=== PATIENT | male | born 1970 | race Caucasian/White ===

== ENCOUNTER 2017-06-13 13:36 | Emergency (ER) | payer OTHER ==
[~2017-06-13] VITALS: Ht 182.9 cm; Wt 68.1 kg
[2017-06-13 13:48] VITALS: BP 163/103
[2017-06-13] MEDS ORDERED: TRAZ50TA18 PO (14:32)
== END 2017-06-13 15:38 | disposition home or self-care (01) ==
LOC: ED 15:00
DX: F10.220 Alcohol dependence with intoxication, uncomplicated (principal)
CPT/HCPCS: 99283